=== PATIENT | female | born 1950 | race Two or more races ===

== ENCOUNTER 2016-11-05 12:45 | Day surgery (SDC) | payer OTHER ==
[~2016-11-05] VITALS: Ht 152.4 cm; Wt 57.0 kg
[2016-11-05] MEDS ORDERED: aspirin (14:25)
[2016-11-05] MEDS ORDERED: simvastatin (14:25)
[2016-11-05] MEDS ORDERED: [UNRECOGNIZED DRUG - OTHER] (14:25)
[2016-11-05] MEDS ORDERED: thyroxine (14:25)
[2016-11-05 14:37] VITALS: Ht 152.4 cm; Wt 57.0 kg
[2016-11-05 16:04] VITALS: BP 119/65; PULSE 69; RESP 17
--- NOTE | 2016-11-06 06:11 | GILP ---
DATE OF PROCEDURE: 11/05/2016 DATE: 11/05/2016 PROCEDURE: Colonoscopy to cecum. BRIEF HISTORY AND INDICATIONS: The patient is being evaluated for colorectal cancer screening. PREMEDICATION: Monitored anesthesia care by anesthesiologist. SURGEON: Oliver Du MD INSTRUMENT USED: Olympus colonoscope. PREPARATION: Adequate. TECHNIQUE: After informed consent, with the patient/relatives understanding the procedure, its indic ations potential risks and complications, including but not limited to: allergic reaction, bleeding, perforation, infection, missed lesions and after all pertinent questions were answered to the patie nt's satisfaction, the patient/relatives signed the witnessed informed consent. Following this, premedication was administered slowly IV push by under careful cardiovascular and re spiratory monitoring with pulse oximetry, automatic blood pressure and monitor tech. Once the sedativ e effect was achieved, the patient was placed in the left lateral decubitus position, digital rectal examination was performed. The colonoscope was then introduced and advanced under visual control th roughout all segments of the colon including: the rectum, sigmoid, descending colon, splenic flexure , transverse colon, hepatic flexure, ascending colon and finally reaching the cecum which was clearl y identified by transillumination, finger indentation and the ileocecal valve. Careful examination o f the mucosa of the lower gastrointestinal tract both on insertion as well as withdrawal of the inst rument disclosed the following findings: Rectal Examination: No evidence of perirectal disease, no masses. Colonic Mucosa: The colonic mucosa is remarkable with presence of diverticulosis which is mild in th e right side of the colon. The mucosa is otherwise unremarkable. The ileocecal valve was clearly i dentified and appears unremarkable. The instrument was withdrawn reexamining the mucosa in detail. No additional abnormalities are noted with exception of moderate sized internal hemorrhoids. IMPRESSION: 1. Diverticulosis right side of the colon, mild. 2. Moderate sized internal hemorrhoids. 3. Otherwise, normal colonoscopy to cecum. PLAN: The patient will follow up as an outpatient. Annual Hemoccult stool testing is recommended a nd screening colonoscopy in 10 years is recommended. Dictated By: OLIVER DU MS/SOLA Conf#: [id number] DID#: [id number]
--- NOTE | 2016-11-06 06:18 | GILP ---
DATE OF PROCEDURE: 11/05/2016 DATE: 11/05/2016 NAME OF PROCEDURE: Esophagogastroduodenoscopy with biopsies. SURGEON: Oliver Du MD. PREOPERATIVE DIAGNOSIS: ____ POSTOPERATIVE DIAGNOSIS: ____ HISTORY AND INDICATIONS: The patient is being evaluated for dyspepsia and reflux symptoms. PREMEDICATION: Monitored anesthesia care by anesthesiologist. INSTRUMENT USED: Olympus panendoscope. TECHNIQUE: After informed consent, with the patient/relatives understanding the procedure, its indic ations, potential risks and complications, including but not limited to: allergic reaction, bleeding , perforation or infection, and after all pertinent questions were answered to the patients satisfac tion, the patient/relatives signed witnessed informed consent. Following this, premedication was administered slowly IV push under careful cardiovascular and respi ratory monitoring with pulse oximetry, automatic blood pressure and playground monitor. Once the sedative effect was achieved the patient was place in the left lateral decubitus, the panen doscope was introduced and advanced under visual control. Careful examination of the upper gastrointestinal tract, both on insertion as well as withdrawal of the instrument disclosed the following findings: ESOPHAGUS: The distal esophagus shows severe erythema, edema and ulceration of the mucosa. Biopsie s were obtained in a limited fashion to rule out Rivera's esophagus. Small hiatal hernia is present. STOMACH: Upon entrance to the stomach, air was insufflated, the gastric loera distended normally. There is erythema and edema of the mucosa of a moderate degree. Biopsies were obtained to rule out H. pylori infection. PYLORUS: The pylorus appears patent and within normal limits, with no evidence of gastric outlet obs truction. DUODENUM: The duodenal mucosa was carefully examined in the duodenal bulb as well as the second port ion of the duodenum and appears unremarkable with no evidence of duodenitis, ulcer or neoplasm. The instrument was then withdrawn, the patient tolerated the procedure well and was transfer out of the endoscopy suite awake, and in good condition to continue recovery under observation IMPRESSION: 1. Severe ulcerated esophagitis, rule out Rivera's esophagus. 2. Small hiatal hernia. 3. Gastritis, rule out Helicobacter pylori infection. Biopsies were obtained. PLAN: 1. The patient will be treated with PPI b.i.d., i.e., Omeprazole 40 mg b.i.d. 2. Pathology will be reviewed as soon as available. 3. Repeat endoscopy in 8 weeks is recommended. Dictated By: OLIVER GALICIA Conf#: [id number] DID#: [id number]
== END 2016-11-05 18:34 | disposition home or self-care (01) ==
LOC: GIL 12:45
PROVIDERS: ATTEND Internal Medicine Gastroenterology
DX: Z12.11 Encounter for screening for malignant neoplasm of colon (principal); K21.0 Gastro-esophageal reflux disease with esophagitis; K44.9 Diaphragmatic hernia without obstruction or gangrene; K29.70 Gastritis, unspecified, without bleeding; K57.90 Diverticulosis of intestine, part unspecified, without perforation or abscess without bleeding; K64.8 Other hemorrhoids; I10 Essential (primary) hypertension; Z86.73 Personal history of transient ischemic attack (TIA), and cerebral infarction without residual deficits
CPT/HCPCS: 43239; 45378; 88305; 88312; 88313; Z7610

== ENCOUNTER 2017-02-18 12:07 | Day surgery (SDC) | payer OTHER ==
[~2017-02-18] VITALS: Ht 152.4 cm; Wt 55.9 kg
[~2017-02-18 12:07] MED LIST: [UNRECOGNIZED DRUG - OTHER]; aspirin; simvastatin; thyroxine
[2017-02-18 13:02] VITALS: Ht 152.4 cm; Wt 55.9 kg
[2017-02-18] MEDS ORDERED: OMEP40CA6 PO (13:12)
[2017-02-18] MEDS ORDERED: ASPI81TA3 PO (13:12)
[2017-02-18] MEDS ORDERED: SMV40T PO (13:12)
[2017-02-18] MEDS ORDERED: SERT50TA6 PO (13:12)
[2017-02-18] MEDS ORDERED: LEVO75TA5 PO (13:12)
[2017-02-18] MEDS ORDERED: [UNRECOGNIZED DRUG - OTHER] (13:12)
[2017-02-18] MEDS ORDERED: PROPOFOL 20 ML ONE (13:59)
[2017-02-18 14:54] VITALS: BP 110/58; PULSE 62; RESP 22
--- NOTE | 2017-02-18 15:40 | GILP ---
DATE OF PROCEDURE: 02/18/2017 PROCEDURE: Esophagogastroduodenoscopy with biopsies. BRIEF HISTORY AND INDICATIONS: The patient is being evaluated for a history of extensive esophageal ulceration. PREMEDICATION: Monitored anesthesia care by the anesthesiologist. SURGEON: Oliver Du MD INSTRUMENT USED: Olympus panendoscope. TECHNIQUE: After informed consent, with the patient/relatives understanding the procedure, its indic ations, potential risks and complications, including but not limited to: allergic reaction, bleeding , perforation or infection, and after all pertinent questions were answered to the patient's satisfa ction, the patient/relatives signed witnessed informed consent. Following this, premedication was administered slowly IV push under careful cardiovascular and respi ratory monitoring with pulse oximetry, automatic blood pressure and plumbing and heating mechanic. Once the sedative effect was achieved the patient was place in the left lateral decubitus, the panen doscope was introduced and advanced under visual control. Careful examination of the upper gastrointestinal tract, both on insertion as well as withdrawal of the instrument disclosed the following findings: ESOPHAGUS: The esophagus shows healing of previously noted extensive ulceration. There is still, however, erythema and edema of the mucosa at the EG junction. Biopsies were obtaine d to rule out H. pylori infection. PYLORUS: The pylorus appears patent and within normal limits, with no evidence of gastric outlet obs truction. DUODENUM: The duodenal mucosa was carefully examined in the duodenal bulb as well as the second port ion of the duodenum and appears unremarkable with no evidence of duodenitis, ulcer or neoplasm. There is erythema and edema of the mucosa at the EG junction. Biopsies were obtained to rule out B arrett's esophagus. STOMACH: Upon entrance to the stomach, air was insufflated, the gastric loera distended normally. There is erythema and edema of the mucosa of a moderate degree. Superficial erosions are also prese nt. Biopsies were obtained to rule out H. pylori infection. The instrument was then withdrawn, the patient tolerated the procedure well and was transfer out of the endoscopy suite awake, and in good condition to continue recovery under observation. IMPRESSION: 1. Healed esophageal ulcers. 2. Esophagitis. Rule out Rivera's esophagus. Biopsies obtained. 3. Gastritis with erosions. Rule out Helicobacter pylori infection. Biopsies obtained. PLAN: The patient will continue PPIs. Pathology will be reviewed as soon as available. Further re commendations will depend on the patient's clinical course, as well as review of biopsies. Dictated By: OLIVER GALICIA Conf#: [id number] DID#: [id number]
== END 2017-02-18 16:19 | disposition home or self-care (01) ==
LOC: GIL 12:07
PROVIDERS: ATTEND Internal Medicine Gastroenterology
DX: K22.10 Ulcer of esophagus without bleeding (principal); K20.9 Esophagitis, unspecified; K29.60 Other gastritis without bleeding; E03.9 Hypothyroidism, unspecified; Z86.73 Personal history of transient ischemic attack (TIA), and cerebral infarction without residual deficits; E78.5 Hyperlipidemia, unspecified; J45.909 Unspecified asthma, uncomplicated
CPT/HCPCS: 43239; 88305; 88312; 88313; Z7610